=== PATIENT | male | born 1970 | race Caucasian/White ===

== ENCOUNTER 2017-08-09 13:30 | Emergency (ER) | payer MEDICARE ==
[~2017-08-09] VITALS: Ht 165.1 cm; Wt 77.3 kg
[2017-08-09] MEDS ORDERED: CLON2 PO (13:44)
[2017-08-09] MEDS ORDERED: LAMO100 PO (13:44)
[2017-08-09] MEDS ORDERED: DESV50TA PO (13:45)
[2017-08-09] MEDS ORDERED: QUET300T2 PO (13:45)
[2017-08-09 13:53] VITALS: BP 143/83
== END 2017-08-09 14:59 | disposition home or self-care (01) ==
LOC: EMS 13:31
DX: F41.9 Anxiety disorder, unspecified (principal)
CPT/HCPCS: 99284